=== PATIENT | male | born 1975 | race Caucasian/White ===

== ENCOUNTER 2018-02-06 16:26 | Emergency (ER) | payer MEDICAID, OTHER ==
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
--- NOTE | 2018-02-06 18:42 | CT ---
Date of service: 02/06/2018 PROCEDURE: CT HEAD WITHOUT CONTRAST. HISTORY: head injury, vomiting COMPARISON: 783.88 TECHNIQUE: Axial computed tomography images were obtained through the head/brain without intravenous contrast. Radiation dose: Total exam DLP = 783.88 mGy-cm. This CT exam was performed using one or more of the following dose reduction techniques: Automated exposure control, adjustment of the mA and/or kV according to patient size, and/or use of iterative reconstruction technique. FINDINGS: HEMORRHAGE: Right convexity subdural hematoma measuring approximately 6 mm in diameter. On the left, there is evidence of subdural hygroma measuring approximately 8 mm in diameter. BRAIN: No mass effect or edema. The hazel-white matter differentiation appears grossly intact. Please note that MRI with diffusion imaging is more sensitive in the detection of acute ischemic event. VENTRICLES: No hydrocephalus. CALVARIUM: Unremarkable. PARANASAL SINUSES: Unremarkable as visualized. No significant inflammatory changes. MASTOID AIR CELLS: Unremarkable as visualized. No inflammatory changes. OTHER FINDINGS: None. IMPRESSION: Right convexity subdural hematoma appears acute and measures approximately 6 mm in diameter. On the left, there is evidence of subdural hygroma measuring approximately 8 mm in diameter. Findings discussed with Milli Vee on 02/06/18 6:32 p.m.
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
[2018-02-06 19:26] LABS: BASO # 0.1 K/uL (0.0-0.2); BASO % 1.2 % (0.0-2.0); EOS # 0.3 K/uL (0.0-0.7); HEMOGLOBIN 14.5 g/dL (12.0-18.0); LYMPH # 1.9 K/uL (1.0-4.3); LYMPH % 17.2 % (20.0-40.0); MEAN CELL VOLUME 95.8 fl (80.0-94.0); MEAN CORPUSCULAR HEMOGLOBIN 31.3 pg (27.0-31.0); MEAN CORPUSCULAR HGB CONC 32.7 g/dL (33.0-37.0); MEAN PLATELET VOLUME 9.2 fl (7.2-11.7); MONO % 8.9 % (0.0-10.0); NEUT # 7.6 K/uL (1.8-7.0); NEUT % 69.7 % (50.0-75.0); RBC 4.62 Mil/uL (4.40-5.90); RED CELL DISTRIBUTION WIDTH 13.1 % (11.5-14.5); WHITE BLOOD COUNT 10.9 K/uL (4.8-10.8)
[2018-02-06 19:30] LABS: INR 1.1
[2018-02-06 19:33] LABS: PARTIAL THROMBOPLASTIN TIME 30.1 Seconds (25.6-37.1)
[2018-02-06 19:46] LABS: ALB/GLOB RATIO 1.2 (1.0-2.1); ALBUMIN 3.9 g/dL (3.5-5.0); ALT/SGPT 50 U/L (21-72); AST/SGOT 91 U/L (17-59); BLOOD UREA NITROGEN 15 mg/dl (9-20); CALCIUM 9.3 mg/dL (8.4-10.2); GFR NON-AFRICAN AMERICAN > 60
[2018-02-06 20:19] VITALS: BP 135/99; PULSE 88; RESP 18; TEMP 99.1; O2SAT 97
--- NOTE | 2018-02-07 07:39 | CARD ---
APPROVED REPORT Date of service: 02/06/2018 EKG Measurement Heart [id number] FL [id number] [id number] <Conclusion> Normal sinus rhythm Normal ECG
== END 2018-02-06 20:41 | disposition short-term general hospital (02) ==
LOC: H.ER 16:26
DX: S06.5X0A Traumatic subdural hemorrhage without loss of consciousness, initial encounter (principal); S02.600A Fracture of unspecified part of body of mandible, unspecified side, initial encounter for closed fracture; S09.90XA Unspecified injury of head, initial encounter; Y04.0XXA Assault by unarmed brawl or fight, initial encounter; Y92.89 Other specified places as the place of occurrence of the external cause; F20.9 Schizophrenia, unspecified
CPT/HCPCS: 70450; 70486; 80053; 85025; 85610; 85730; 93005; 99285; G0480